=== PATIENT | male | born 1935 | race Caucasian/White ===

== ENCOUNTER 2021-10-06 03:13 | Inpatient (IN) ==
[2021-10-06] MEDS ORDERED: Acetaminophen 325 MG TABLET PO PRN (05:43)
[2021-10-06] MEDS ORDERED: Ondansetron 4 MG/2 ML VIAL IVP PRN (05:43)
[2021-10-06] MEDS ORDERED: Naloxone 0.4 MG/ML INJ IVP PRN (05:43)
[2021-10-06] MEDS ORDERED: Perflutren Lipid Microsphere 1.3 ML in 0.9 % Sodium Chloride 8.7 ML IVP PRN (05:46)
[2021-10-06 06:24] LABS: Hematocrit 34.2 % (37.5-50.1); Mean Corpuscular HGB Conc 32.2 g/dL (31.6-35.5); Mean Corpuscular Volume 96.3 fL (83.0-100.0); Platelet Count 124 K/mcL (140-400); Red Blood Count 3.55 M/mcL (4.19-5.50); Red Cell Distribution Width 13.2 % (11.5-14.5); White Blood Count 10.4 K/mcL (4.3-11.1)
[2021-10-06 06:29] LABS: INR 1.3; Prothrombin Time 14.4 Seconds (9.4-12.1)
[2021-10-06] MEDS: Ringers Solution, Lactated 1,000 ML IVC SCH (06:31)
[2021-10-06] MEDS ORDERED: Isovue-370 500 ML BOTTLE IVP ONE (06:31)
[2021-10-06 06:36] LABS: BUN/Creatinine Ratio 21 (6-26); Blood Urea Nitrogen 23 mg/dL (8-23); Calcium 8.5 mg/dL (8.6-10.3); Carbon Dioxide 24 mEq/L (23-29); Chloride 107 mEq/L (98-107); Glucose 112 mg/dL (70-105); Osmolality,Calculated 288 (280-300); Potassium 3.4 mEq/L (3.5-5.1); Sodium 137 mEq/L (136-145); eGFR For African Americans > 60 (> 60); eGFR For Non-African Americans > 60 (> 60)
[2021-10-06 06:37] LABS: Chol/HDL Ratio 2.7 (0-4.9)
[2021-10-06] MEDS: cefTRIAXone 1,000 MG in Water for inj. (sterile) 10 ML IVP SCH (10:15)
[2021-10-06] MEDS ORDERED: Furosemide 20 MG/2 ML VIAL IVP ONE (11:02)
[2021-10-06] MEDS: Vancomycin 1,500 MG/265 ML IV.SOLN IVPB SCH (12:04)
[2021-10-06] MEDS: Pantoprazole 40 MG VIAL IVP SCH (12:05)
[2021-10-06] MEDS: *HR* Heparin 5,000 UNIT/ML VIAL SQ SCH (18:36)
[2021-10-06] MEDS: Lactobacillus 1 EACH CAP.SPRINK PO SCH (21:24)
[2021-10-06] MEDS: Melatonin 3 MG TABLET PO PRN (21:38)
[2021-10-07] MEDS: *HR* Heparin 5,000 UNIT/ML VIAL SQ SCH ×2 (05:19→17:54)
[2021-10-07 05:25] LABS: Basophils % 0.4 %; Eosinophils % 0.2 %; Hematocrit 32.7 % (37.5-50.1); Hemoglobin 10.7 g/dL (12.9-16.9); Immature Granulocytes % 0.2 % (0-4); Lymphocytes # 0.5 K/mcL (0.6-4.6); Mean Corpuscular HGB Conc 32.7 g/dL (31.6-35.5); Mean Corpuscular Hemoglobin 31.3 pg (28.0-33.3); Mean Corpuscular Volume 95.6 fL (83.0-100.0); Mean Platelet Volume 10.1 fL (9.4-12.4); Monocytes # 0.5 K/mcL (0.0-1.3); Monocytes % 9.4 %; Platelet Count 110 K/mcL (140-400); Red Blood Count 3.42 M/mcL (4.19-5.50); Red Cell Distribution Width 13.3 % (11.5-14.5); Segmented Neutrophils % 80.8 %
[2021-10-07 06:17] LABS: Alanine Aminotransferase 30 Units/L (7-52); Albumin/Globulin Ratio 1.5 (1.1-2.2); Alkaline Phosphatase 40 Units/L (34-104); Aspartate Amino Transferase 64 Units/L (13-39); BUN/Creatinine Ratio 19 (6-26); Bilirubin,Total 0.3 mg/dL (0.3-1.0); Blood Urea Nitrogen 19 mg/dL (8-23); Calcium 8.4 mg/dL (8.6-10.3); Carbon Dioxide 26 mEq/L (23-29); Chloride 106 mEq/L (98-107); Glucose 115 mg/dL (70-105); Osmolality,Calculated 287 (280-300); Potassium 3.2 mEq/L (3.5-5.1); Sodium 137 mEq/L (136-145); eGFR For African Americans > 60 (> 60); eGFR For Non-African Americans > 60 (> 60)
[2021-10-07] MEDS: cefTRIAXone 1,000 MG in Water for inj. (sterile) 10 ML IVP SCH (08:45)
[2021-10-07] MEDS: Lactobacillus 1 EACH CAP.SPRINK PO SCH ×2 (08:45→21:01)
[2021-10-07] MEDS: Pantoprazole 40 MG VIAL IVP SCH (08:46)
[2021-10-07] MEDS: Vancomycin 1,500 MG/265 ML IV.SOLN IVPB SCH (12:09)
[2021-10-07 14:31] LABS: Acinetobacter baumannii by PCR Not Detected (Not Detect); Candida albicans by PCR Not Detected (Not Detect); Candida glabrata by PCR Not Detected (Not Detect); Candida krusei by PCR Not Detected (Not Detect); Candida parapsilosis by PCR Not Detected (Not Detect); Candida tropicalis by PCR Not Detected (Not Detect); Enterobacter cloacae Cmplx PCR Not Detected (Not Detect); Enterobacteriaceae by PCR Not Detected (Not Detect); Enterococcus by PCR DETECTED (Not Detect); Escherichia coli by PCR Not Detected (Not Detect); Klebsiella oxytoca by PCR Not Detected (Not Detect); Klebsiella pneumoniae by PCR Not Detected (Not Detect); Proteus by PCR Not Detected (Not Detect); Pseudomonas aeruginosa by PCR Not Detected (Not Detect); Serratia marcescens by PCR Not Detected (Not Detect); Staphylococcus aureus by PCR Not Detected (Not Detect); Staphylococcus by PCR Not Detected (Not Detect); Streptococcus agalactiae(B)PCR Not Detected (Not Detect); Streptococcus by PCR Not Detected (Not Detect); Streptococcus pneumoniae PCR Not Detected (Not Detect); Streptococcus pyogenes (A) PCR Not Detected (Not Detect); vanA/B Vancomycin-Resist Genes Not Detected (Not Detect)
[2021-10-07] MEDS: Ringers Solution, Lactated 1,000 ML IVC SCH (20:04)
[2021-10-07] MEDS: BuPROPion XL (24 HR) 150 MG TABLET PO SCH (21:00)
[2021-10-07] MEDS: traZODone 50 MG TABLET PO SCH (21:01)
[2021-10-07] MEDS: Melatonin 3 MG TABLET PO PRN (21:10)
[2021-10-08] MEDS: *HR* Heparin 5,000 UNIT/ML VIAL SQ SCH ×2 (05:37→16:50)
[2021-10-08 08:43] LABS: Adenovirus F 40/41 PCR Not detected (Not detect); Astrovirus PCR Not detected (Not detect); C.difficile Toxin A/B Gene PCR Not detected (Not detect); Campylobacter by PCR Not detected (Not detect); Cryptosporidium by PCR Not detected (Not detect); Cyclospora cayetanensis PCR Not detected (Not detect); E. coli O157 by PCR Not detected (Not detect); Entamoeba histolytica PCR Not detected (Not detect); Enteroaggregative E.coli(EAEC) Not detected (Not detect); Enteropathogenic E.coli(EPEC) Not detected (Not detect); Enterotoxigenic E.coli (ETEC) Not detected (Not detect); Giardia lamblia PCR Not detected (Not detect); Norovirus GI/GII PCR Not detected (Not detect); Plesiomonas shigelloides PCR Not detected (Not detect); Rotavirus A PCR Not detected (Not detect); Salmonella PCR Not detected (Not detect); Sapovirus PCR Not detected (Not detect); Shig/EnteroinvasiveE coli EIEC Not detected (Not detect); Shigalike tox-prod E coli STEC Not detected (Not detect); Vibrio PCR Not detected (Not detect); Vibrio cholerae PCR Not detected (Not detect); Yersinia enterocolitica PCR Not detected (Not detect)
[2021-10-08] MEDS: traZODone 50 MG TABLET PO SCH ×2 (08:54→21:21)
[2021-10-08] MEDS: Lactobacillus 1 EACH CAP.SPRINK PO SCH ×2 (08:54→21:15)
[2021-10-08] MEDS: BuPROPion XL (24 HR) 150 MG TABLET PO SCH ×2 (08:54→21:16)
[2021-10-08] MEDS: *HR* HYDROcodone/Acet 5/325 mg TABLET PO PRN ×2 (08:54→16:49)
[2021-10-08] MEDS: Aspirin Enteric Coated 81 MG Tablet PO SCH (08:54)
[2021-10-08] MEDS: cefTRIAXone 1,000 MG in Water for inj. (sterile) 10 ML IVP SCH (08:55)
[2021-10-08] MEDS: Nystatin SUSP 5 ML UD.LIQ PO SCH ×4 (08:55→21:15)
[2021-10-08] MEDS: Pantoprazole 40 MG VIAL IVP SCH (08:55)
[2021-10-08 11:12] LABS: Basophils % 0.5 %; Eosinophils % 0.8 %; Immature Granulocytes % 0.3 % (0-4); Lymphocytes # 0.6 K/mcL (0.6-4.6); Lymphocytes % 15.2 %; Mean Corpuscular HGB Conc 32.4 g/dL (31.6-35.5); Mean Corpuscular Hemoglobin 31.4 pg (28.0-33.3); Mean Corpuscular Volume 96.9 fL (83.0-100.0); Mean Platelet Volume 10.7 fL (9.4-12.4); Monocytes # 0.4 K/mcL (0.0-1.3); Monocytes % 10.5 %; Neutrophils # 2.8 K/mcL (1.6-8.9); Platelet Count 139 K/mcL (140-400); Red Blood Count 3.92 M/mcL (4.19-5.50); Segmented Neutrophils % 72.7 %; White Blood Count 3.8 K/mcL (4.3-11.1)
[2021-10-08 11:16] LABS: Hemoglobin 12.3 g/dL (12.9-16.9)
[2021-10-08 11:33] LABS: BUN/Creatinine Ratio 12 (6-26); Blood Urea Nitrogen 13 mg/dL (8-23); Calcium 8.7 mg/dL (8.6-10.3); Carbon Dioxide 25 mEq/L (23-29); Chloride 103 mEq/L (98-107); Glucose 144 mg/dL (70-105); Osmolality,Calculated 287 (280-300); Potassium 3.2 mEq/L (3.5-5.1); Sodium 137 mEq/L (136-145); eGFR For African Americans > 60 (> 60); eGFR For Non-African Americans > 60 (> 60)
[2021-10-09 05:50] LABS: Basophils % 0.8 %; Eosinophils # 0.1 K/mcL (0.0-0.6); Eosinophils % 3.3 %; Hematocrit 32.4 % (37.5-50.1); Hemoglobin 10.8 g/dL (12.9-16.9); Immature Granulocytes % 0.3 % (0-4); Lymphocytes # 0.9 K/mcL (0.6-4.6); Lymphocytes % 25.8 %; Mean Corpuscular HGB Conc 33.3 g/dL (31.6-35.5); Mean Corpuscular Hemoglobin 31.3 pg (28.0-33.3); Mean Corpuscular Volume 93.9 fL (83.0-100.0); Mean Platelet Volume 10.5 fL (9.4-12.4); Monocytes # 0.5 K/mcL (0.0-1.3); Monocytes % 12.8 %; Neutrophils # 2.1 K/mcL (1.6-8.9); Platelet Count 123 K/mcL (140-400); Red Blood Count 3.45 M/mcL (4.19-5.50); Red Cell Distribution Width 12.9 % (11.5-14.5); White Blood Count 3.6 K/mcL (4.3-11.1)
[2021-10-09 06:13] LABS: BUN/Creatinine Ratio 14 (6-26); Blood Urea Nitrogen 14 mg/dL (8-23); Calcium 8.4 mg/dL (8.6-10.3); Carbon Dioxide 27 mEq/L (23-29); Chloride 106 mEq/L (98-107); Glucose 100 mg/dL (70-105); Osmolality,Calculated 289 (280-300); Sodium 139 mEq/L (136-145); eGFR For African Americans > 60 (> 60); eGFR For Non-African Americans > 60 (> 60)
[2021-10-09] MEDS: *HR* Heparin 5,000 UNIT/ML VIAL SQ SCH ×2 (07:06→17:28)
[2021-10-09] MEDS: *HR* HYDROcodone/Acet 5/325 mg TABLET PO PRN ×2 (08:30→14:51)
[2021-10-09] MEDS: cefTRIAXone 1,000 MG in Water for inj. (sterile) 10 ML IVP SCH (08:30)
[2021-10-09] MEDS: BuPROPion XL (24 HR) 150 MG TABLET PO SCH ×4 (08:33→20:13)
[2021-10-09] MEDS: Lactobacillus 1 EACH CAP.SPRINK PO SCH ×4 (08:33→20:14)
[2021-10-09] MEDS: Aspirin Enteric Coated 81 MG Tablet PO SCH ×3 (08:33→12:33)
[2021-10-09] MEDS: traZODone 50 MG TABLET PO SCH ×4 (08:33→20:13)
[2021-10-09] MEDS: Nystatin SUSP 5 ML UD.LIQ PO SCH ×5 (08:33→20:14)
[2021-10-09] MEDS ORDERED: Lidocaine Viscous Oral Soln 15 ML SOLUTION MM PRN (10:11)
[2021-10-09] MEDS ORDERED: 0.9 % Sodium Chloride 500 ML IVC ONE (10:12)
[2021-10-09] MEDS ORDERED: *HR* Midazolam HCl 2 MG/2 ML VIAL IVP PRN (10:36)
[2021-10-09] MEDS ORDERED: *HR* Midazolam HCl 5 MG/5 ML VIAL IVP ONE ×2 (10:47→10:48)
[2021-10-09] MEDS: *HR* FentaNYL (PF) 100 MCG/2 ML VIAL IVP PRN ×2 (11:05→11:10)
[2021-10-09] MEDS: Melatonin 3 MG TABLET PO PRN (20:22)
[2021-10-10 03:41] LABS: Basophils % 0.6 %; Eosinophils # 0.2 K/mcL (0.0-0.6); Eosinophils % 3.3 %; Hematocrit 31.8 % (37.5-50.1); Hemoglobin 10.8 g/dL (12.9-16.9); Immature Granulocytes % 0.4 % (0-4); Lymphocytes # 0.9 K/mcL (0.6-4.6); Lymphocytes % 17.7 %; Mean Corpuscular Hemoglobin 32.2 pg (28.0-33.3); Mean Corpuscular Volume 94.9 fL (83.0-100.0); Mean Platelet Volume 9.9 fL (9.4-12.4); Monocytes # 0.6 K/mcL (0.0-1.3); Monocytes % 12.6 %; Neutrophils # 3.2 K/mcL (1.6-8.9); Platelet Count 127 K/mcL (140-400); Red Blood Count 3.35 M/mcL (4.19-5.50); Segmented Neutrophils % 65.4 %; White Blood Count 4.9 K/mcL (4.3-11.1)
[2021-10-10 03:43] LABS: BUN/Creatinine Ratio 20 (6-26); Blood Urea Nitrogen 20 mg/dL (8-23); Calcium 8.2 mg/dL (8.6-10.3); Carbon Dioxide 29 mEq/L (23-29); Chloride 105 mEq/L (98-107); Glucose 103 mg/dL (70-105); Osmolality,Calculated 289 (280-300); Potassium 3.4 mEq/L (3.5-5.1); Sodium 138 mEq/L (136-145); eGFR For African Americans > 60 (> 60); eGFR For Non-African Americans > 60 (> 60)
[2021-10-10] MEDS: *HR* Heparin 5,000 UNIT/ML VIAL SQ SCH ×2 (05:37→17:12)
[2021-10-10] MEDS: cefTRIAXone 1,000 MG in Water for inj. (sterile) 10 ML IVP SCH (08:33)
[2021-10-10] MEDS: Aspirin Enteric Coated 81 MG Tablet PO SCH (08:34)
[2021-10-10] MEDS: traZODone 50 MG TABLET PO SCH ×2 (08:34→20:17)
[2021-10-10] MEDS: BuPROPion XL (24 HR) 150 MG TABLET PO SCH ×2 (08:34→20:17)
[2021-10-10] MEDS: Nystatin SUSP 5 ML UD.LIQ PO SCH ×4 (08:34→20:18)
[2021-10-10] MEDS: Lactobacillus 1 EACH CAP.SPRINK PO SCH ×2 (08:34→20:16)
[2021-10-10] MEDS ORDERED: DAPTOmycin 700 MG in 0.9 % Sodium Chloride 100 ML IVPB SCH (13:00)
[2021-10-11 05:17] LABS: Basophils % 0.6 %; Eosinophils # 0.3 K/mcL (0.0-0.6); Eosinophils % 5.9 %; Hematocrit 32.5 % (37.5-50.1); Hemoglobin 10.7 g/dL (12.9-16.9); Immature Granulocytes % 0.4 % (0-4); Lymphocytes # 0.9 K/mcL (0.6-4.6); Lymphocytes % 19.1 %; Mean Corpuscular HGB Conc 32.9 g/dL (31.6-35.5); Mean Corpuscular Hemoglobin 31.4 pg (28.0-33.3); Mean Corpuscular Volume 95.3 fL (83.0-100.0); Mean Platelet Volume 10.1 fL (9.4-12.4); Monocytes # 0.7 K/mcL (0.0-1.3); Monocytes % 13.9 %; Neutrophils # 2.9 K/mcL (1.6-8.9); Platelet Count 131 K/mcL (140-400); Red Blood Count 3.41 M/mcL (4.19-5.50); Red Cell Distribution Width 12.9 % (11.5-14.5); Segmented Neutrophils % 60.1 %; White Blood Count 4.8 K/mcL (4.3-11.1)
[2021-10-11] MEDS: *HR* Heparin 5,000 UNIT/ML VIAL SQ SCH ×2 (05:45→18:24)
[2021-10-11 06:20] LABS: BUN/Creatinine Ratio 27 (6-26); Blood Urea Nitrogen 27 mg/dL (8-23); Calcium 8.4 mg/dL (8.6-10.3); Carbon Dioxide 29 mEq/L (23-29); Chloride 105 mEq/L (98-107); Glucose 102 mg/dL (70-105); Osmolality,Calculated 293 (280-300); Potassium 3.5 mEq/L (3.5-5.1); Sodium 139 mEq/L (136-145); eGFR For African Americans > 60 (> 60); eGFR For Non-African Americans > 60 (> 60)
[2021-10-11] MEDS: BuPROPion XL (24 HR) 150 MG TABLET PO SCH ×2 (09:24→20:01)
[2021-10-11] MEDS: Lactobacillus 1 EACH CAP.SPRINK PO SCH ×2 (09:24→20:01)
[2021-10-11] MEDS: traZODone 50 MG TABLET PO SCH ×2 (09:24→20:01)
[2021-10-11] MEDS: Aspirin Enteric Coated 81 MG Tablet PO SCH (09:25)
[2021-10-11] MEDS: Nystatin SUSP 5 ML UD.LIQ PO SCH ×4 (09:25→20:02)
[2021-10-11] MEDS: cefTRIAXone 1,000 MG in Water for inj. (sterile) 10 ML IVP SCH (09:25)
[2021-10-12] MEDS: *HR* Heparin 5,000 UNIT/ML VIAL SQ SCH ×2 (05:22→18:08)
[2021-10-12] MEDS: Lactobacillus 1 EACH CAP.SPRINK PO SCH ×2 (10:10→21:42)
[2021-10-12] MEDS: Nystatin SUSP 5 ML UD.LIQ PO SCH ×4 (10:10→21:44)
[2021-10-12] MEDS: traZODone 50 MG TABLET PO SCH ×2 (10:10→21:42)
[2021-10-12] MEDS: Aspirin Enteric Coated 81 MG Tablet PO SCH (10:10)
[2021-10-12] MEDS: BuPROPion XL (24 HR) 150 MG TABLET PO SCH ×2 (10:10→21:41)
[2021-10-12] MEDS: DAPTOmycin 750 MG in 0.9 % Sodium Chloride 100 ML IVPB SCH (14:01)
[2021-10-13] MEDS: *HR* Heparin 5,000 UNIT/ML VIAL SQ SCH (05:33)
[2021-10-13 08:26] LABS: BUN/Creatinine Ratio 29 (6-26); Blood Urea Nitrogen 28 mg/dL (8-23); Calcium 8.3 mg/dL (8.6-10.3); Carbon Dioxide 31 mEq/L (23-29); Chloride 106 mEq/L (98-107); Creatine Kinase 75 Units/L (30-223); Glucose 97 mg/dL (70-105); Osmolality,Calculated 281 (280-300); Potassium 3.4 mEq/L (3.5-5.1); Sodium 133 mEq/L (136-145); eGFR For African Americans > 60 (> 60); eGFR For Non-African Americans > 60 (> 60)
[2021-10-13] MEDS: Aspirin Enteric Coated 81 MG Tablet PO SCH (09:20)
[2021-10-13] MEDS: BuPROPion XL (24 HR) 150 MG TABLET PO SCH (09:20)
[2021-10-13] MEDS: traZODone 50 MG TABLET PO SCH (09:20)
[2021-10-13] MEDS: Lactobacillus 1 EACH CAP.SPRINK PO SCH (09:20)
[2021-10-13] MEDS: Nystatin SUSP 5 ML UD.LIQ PO SCH ×2 (09:20→12:32)
[2021-10-13 10:46] VITALS: BP 124/49; PULSE 85; TEMP 98.1; O2SAT 96
[2021-10-13] MEDS: DAPTOmycin 750 MG in 0.9 % Sodium Chloride 100 ML IVPB SCH (12:32)
== END 2021-10-13 17:15 | disposition home health service (06) | DRG 871 ==
LOC: 3ANU → SUATTDRO 05:06
PROVIDERS: ADMIT Internal Medicine; ATTEND Internal Medicine

== ENCOUNTER 2022-02-13 10:15 | Observation (INO) ==
[2022-02-13 11:10] LABS: Eosinophils # 0.2 K/mcL (0.0-0.6); Eosinophils % 4.2 %; Hematocrit 34.5 % (37.5-50.1); Hemoglobin 11.6 g/dL (12.9-16.9); Immature Granulocytes % 0.2 % (0-4); Lymphocytes # 0.6 K/mcL (0.6-4.6); Lymphocytes % 15.8 %; Mean Corpuscular HGB Conc 33.6 g/dL (31.6-35.5); Mean Corpuscular Hemoglobin 32.5 pg (28.0-33.3); Mean Corpuscular Volume 96.6 fL (83.0-100.0); Mean Platelet Volume 9.9 fL (9.4-12.4); Monocytes # 0.5 K/mcL (0.0-1.3); Monocytes % 13.1 %; Neutrophils # 2.7 K/mcL (1.6-8.9); Platelet Count 140 K/mcL (140-400); Red Blood Count 3.57 M/mcL (4.19-5.50); Red Cell Distribution Width 12.8 % (11.5-14.5); Segmented Neutrophils % 65.7 %
[2022-02-13 11:18] LABS: INR 1.2; Prothrombin Time 13.1 Seconds (9.4-12.1)
[2022-02-13 11:20] LABS: Activated Partial Thrombo Time 26.7 Seconds (26.0-36.0)
[2022-02-13 11:40] LABS: Alanine Aminotransferase 16 Units/L (7-52); Albumin 3.8 g/dL (3.5-5.7); Alkaline Phosphatase 57 Units/L (34-104); Aspartate Amino Transferase 14 Units/L (13-39); BUN/Creatinine Ratio 22 (6-26); Bilirubin,Direct 0.1 mg/dL (0.0-0.2); Bilirubin,Indirect 0.4 mg/dL (0.0-1.0); Bilirubin,Total 0.5 mg/dL (0.3-1.0); Blood Urea Nitrogen 26 mg/dL (8-23); Calcium 9.1 mg/dL (8.6-10.3); Carbon Dioxide 30 mEq/L (23-29); Chloride 103 mEq/L (98-107); Globulin 1.9 g/dL (2.4-3.5); Glucose 106 mg/dL (70-105); Osmolality,Calculated 287 (280-300); Sodium 136 mEq/L (136-145); Total Protein 5.7 g/dL (6.4-8.9); Troponin I < 0.03 ng/mL (< 0.04); eGFR For African Americans > 60 (> 60); eGFR For Non-African Americans 58 (> 60)
[2022-02-13] MEDS ORDERED: Ondansetron ODT 4 MG TAB.RAPDIS SL PRN (18:00)
[2022-02-13] MEDS ORDERED: MOM Conc 10 ML UD.LIQ PO PRN (18:00)
[2022-02-13] MEDS ORDERED: Naloxone 0.4 MG/ML INJ IVP PRN (18:00)
[2022-02-13] MEDS ORDERED: Acetaminophen 325 MG TABLET PO PRN (18:00)
[2022-02-13] MEDS ORDERED: Melatonin 3 MG TABLET PO PRN (18:00)
[2022-02-13] MEDS ORDERED: Nitroglycerin 0.4 MG TAB.SUBL SL PRN (18:04)
[2022-02-13] MEDS: BuPROPion SR (12 HR) 150 MG TABLET PO SCH (20:47)
[2022-02-13] MEDS ORDERED: traZODone 50 MG TABLET PO SCH (21:00)
[2022-02-14 05:14] LABS: Basophils % 0.7 %; Eosinophils # 0.3 K/mcL (0.0-0.6); Eosinophils % 4.8 %; Hemoglobin 12.7 g/dL (12.9-16.9); Immature Granulocytes % 0.2 % (0-4); Lymphocytes # 0.9 K/mcL (0.6-4.6); Mean Corpuscular HGB Conc 34.3 g/dL (31.6-35.5); Mean Corpuscular Volume 96.1 fL (83.0-100.0); Mean Platelet Volume 10.1 fL (9.4-12.4); Monocytes # 0.6 K/mcL (0.0-1.3); Monocytes % 11.7 %; Neutrophils # 3.6 K/mcL (1.6-8.9); Platelet Count 155 K/mcL (140-400); Red Blood Count 3.85 M/mcL (4.19-5.50); Red Cell Distribution Width 12.6 % (11.5-14.5); Segmented Neutrophils % 66.6 %; White Blood Count 5.4 K/mcL (4.3-11.1)
[2022-02-14 05:36] LABS: BUN/Creatinine Ratio 17 (6-26); Blood Urea Nitrogen 18 mg/dL (8-23); Calcium 9.2 mg/dL (8.6-10.3); Carbon Dioxide 28 mEq/L (23-29); Chloride 103 mEq/L (98-107); Chol/HDL Ratio 2.3 (0-4.9); Cholesterol 113 mg/dL (< 200); Glucose 99 mg/dL (70-105); HDL Cholesterol 50 mg/dL (40-59); LDL Cholesterol,Calculated 50 mg/dL (< 100); Osmolality,Calculated 288 (280-300); Potassium 3.7 mEq/L (3.5-5.1); Sodium 138 mEq/L (136-145); Triglycerides 63 mg/dL (< 150); eGFR For African Americans > 60 (> 60); eGFR For Non-African Americans > 60 (> 60)
[2022-02-14] MEDS ORDERED: Regadenoson 0.4 MG/5 ML SYRINGE IVP ONE (06:48)
[2022-02-14 07:44] VITALS: BP 150/84; PULSE 64; TEMP 98; O2SAT 94
[2022-02-14] MEDS ORDERED: Aspirin Enteric Coated 81 MG Tablet PO SCH (09:00)
[2022-02-14] MEDS: BuPROPion SR (12 HR) 150 MG TABLET PO SCH (11:02)
== END 2022-02-14 13:31 | disposition home or self-care (01) ==
LOC: EMEROOARM 10:15 → 3BNU 10:15 → SUATTDRO 18:29 → 3BNU 20:21
PROVIDERS: ADMIT Internal Medicine; ATTEND Family Medicine

== ENCOUNTER 2022-03-29 09:45 | Observation (INO) ==
[2022-03-29] MEDS ORDERED: Naloxone 0.4 MG/ML INJ IVP PRN (13:29)
[2022-03-29] MEDS ORDERED: Ondansetron ODT 4 MG TAB.RAPDIS SL PRN (13:45)
[2022-03-29] MEDS ORDERED: Perflutren Lipid Microsphere 1.3 ML in 0.9 % Sodium Chloride 8.7 ML IVP PRN (13:45)
[2022-03-29] MEDS ORDERED: Acetaminophen 325 MG TABLET PO PRN (13:45)
[2022-03-29] MEDS ORDERED: Nitroglycerin 0.4 MG TAB.SUBL SL PRN (14:57)
[2022-03-29] MEDS ORDERED: Morphine Sulfate 2 MG/ML SYRINGE IVP PRN (14:59)
[2022-03-29] MEDS: Isosorbide MONOnitrate (24 HR) 30 MG TAB.ER.24H PO SCH (16:29)
[2022-03-29] MEDS: Pantoprazole 40 MG VIAL IVP SCH (16:29)
[2022-03-29] MEDS: *HR* Heparin 5,000 UNIT/ML VIAL SQ SCH (16:30)
[2022-03-29] MEDS: Melatonin 3 MG TABLET PO SCH (21:41)
[2022-03-29] MEDS: traZODone 50 MG TABLET PO SCH (21:41)
[2022-03-30] MEDS: *HR* Heparin 5,000 UNIT/ML VIAL SQ SCH ×2 (05:37→21:34)
[2022-03-30 05:57] LABS: Basophils % 0.5 %; Eosinophils # 0.3 K/mcL (0.0-0.6); Eosinophils % 4.2 %; Hematocrit 30.9 % (37.5-50.1); Hemoglobin 10.4 g/dL (12.9-16.9); Immature Granulocytes % 0.2 % (0-4); Lymphocytes # 0.9 K/mcL (0.6-4.6); Lymphocytes % 14.3 %; Mean Corpuscular HGB Conc 33.7 g/dL (31.6-35.5); Mean Corpuscular Volume 98.1 fL (83.0-100.0); Mean Platelet Volume 10.2 fL (9.4-12.4); Monocytes # 0.8 K/mcL (0.0-1.3); Monocytes % 12.7 %; Neutrophils # 4.3 K/mcL (1.6-8.9); Platelet Count 133 K/mcL (140-400); Red Blood Count 3.15 M/mcL (4.19-5.50); Red Cell Distribution Width 12.8 % (11.5-14.5); Segmented Neutrophils % 68.1 %; White Blood Count 6.2 K/mcL (4.3-11.1)
[2022-03-30 06:21] LABS: Alanine Aminotransferase 12 Units/L (7-52); Albumin 3.2 g/dL (3.5-5.7); Albumin/Globulin Ratio 1.6 (1.1-2.2); Alkaline Phosphatase 54 Units/L (34-104); Aspartate Amino Transferase 12 Units/L (13-39); BUN/Creatinine Ratio 15 (6-26); Bilirubin,Total 0.8 mg/dL (0.3-1.0); Blood Urea Nitrogen 17 mg/dL (8-23); Calcium 8.6 mg/dL (8.6-10.3); Carbon Dioxide 30 mEq/L (23-29); Chloride 103 mEq/L (98-107); Chol/HDL Ratio 2.1 (0-4.9); Cholesterol 95 mg/dL (< 200); Glucose 96 mg/dL (70-105); HDL Cholesterol 45 mg/dL (40-59); LDL Cholesterol,Calculated 39 mg/dL (< 100); Osmolality,Calculated 285 (280-300); Potassium 3.4 mEq/L (3.5-5.1); Sodium 137 mEq/L (136-145); Total Protein 5.2 g/dL (6.4-8.9); Triglycerides 55 mg/dL (< 150); eGFR For African Americans > 60 (> 60); eGFR For Non-African Americans > 60 (> 60)
[2022-03-30] MEDS: Aspirin Enteric Coated 81 MG Tablet PO SCH (09:03)
[2022-03-30] MEDS: Simethicone 80 MG TAB.CHEW PO SCH (09:03)
[2022-03-30] MEDS: Isosorbide MONOnitrate (24 HR) 30 MG TAB.ER.24H PO SCH (09:03)
[2022-03-30] MEDS: BuPROPion SR (12 HR) 150 MG TABLET PO SCH ×2 (09:04→21:53)
[2022-03-30] MEDS: Pantoprazole 40 MG VIAL IVP SCH (09:04)
[2022-03-30] MEDS: amLODIPine 5 MG TABLET PO SCH (09:05)
[2022-03-30] MEDS ORDERED: Isosorbide MONOnitrate (24 HR) 30 MG TAB.ER.24H PO ONE (12:12)
[2022-03-30] MEDS ORDERED: Donnatal Liq 10 ML UDC PO ONE (12:24)
[2022-03-30] MEDS ORDERED: Lidocaine Viscous Oral Soln 15 ML SOLUTION MM ONE (12:25)
[2022-03-30] MEDS ORDERED: Mag Hydrox/Al Hydrox/Simeth 30 ML UDC PO ONE (12:25)
[2022-03-30] MEDS ORDERED: GI Cocktail 40 ML EACH PO ONE (13:10)
[2022-03-30] MEDS ORDERED: Furosemide 20 MG TABLET PO PRN (13:13)
[2022-03-30] MEDS: Melatonin 3 MG TABLET PO SCH (21:51)
[2022-03-30] MEDS: traZODone 50 MG TABLET PO SCH (21:51)
[2022-03-30] MEDS ORDERED: traZODone 50 MG TABLET PO ONE (22:12)
[2022-03-31] MEDS: *HR* Heparin 5,000 UNIT/ML VIAL SQ SCH (06:12)
[2022-03-31 07:23] LABS: Basophils % 0.3 %; Eosinophils # 0.2 K/mcL (0.0-0.6); Eosinophils % 3.8 %; Hematocrit 31.8 % (37.5-50.1); Hemoglobin 10.4 g/dL (12.9-16.9); Immature Granulocytes % 0.2 % (0-4); Lymphocytes # 0.9 K/mcL (0.6-4.6); Lymphocytes % 15.7 %; Mean Corpuscular HGB Conc 32.7 g/dL (31.6-35.5); Mean Corpuscular Hemoglobin 31.7 pg (28.0-33.3); Mean Platelet Volume 10.3 fL (9.4-12.4); Monocytes # 0.7 K/mcL (0.0-1.3); Monocytes % 11.8 %; Neutrophils # 3.9 K/mcL (1.6-8.9); Platelet Count 148 K/mcL (140-400); Red Blood Count 3.28 M/mcL (4.19-5.50); Red Cell Distribution Width 12.6 % (11.5-14.5); Segmented Neutrophils % 68.2 %; White Blood Count 5.8 K/mcL (4.3-11.1)
[2022-03-31] MEDS: Aspirin Enteric Coated 81 MG Tablet PO SCH (07:46)
[2022-03-31] MEDS: Simethicone 80 MG TAB.CHEW PO SCH (07:46)
[2022-03-31] MEDS: BuPROPion SR (12 HR) 150 MG TABLET PO SCH (07:46)
[2022-03-31] MEDS: amLODIPine 5 MG TABLET PO SCH (07:47)
[2022-03-31 07:53] LABS: BUN/Creatinine Ratio 15 (6-26); Blood Urea Nitrogen 19 mg/dL (8-23); Calcium 8.6 mg/dL (8.6-10.3); Carbon Dioxide 28 mEq/L (23-29); Chloride 103 mEq/L (98-107); Glucose 105 mg/dL (70-105); Osmolality,Calculated 287 (280-300); Potassium 3.4 mEq/L (3.5-5.1); Sodium 137 mEq/L (136-145); eGFR For African Americans > 60 (> 60); eGFR For Non-African Americans 55 (> 60)
[2022-03-31] MEDS: Pantoprazole 40 MG VIAL IVP SCH (07:55)
[2022-03-31] MEDS ORDERED: Furosemide 20 MG TABLET PO SCH (09:00)
[2022-03-31] MEDS ORDERED: Isosorbide MONOnitrate (24 HR) 30 MG TAB.ER.24H PO SCH (09:00)
[2022-03-31] MEDS ORDERED: Isosorbide MONOnitrate (24 HR) 60 MG TAB.ER.24H PO SCH (09:00)
[2022-03-31 15:26] VITALS: BP 102/52; PULSE 62; TEMP 98.1; O2SAT 96
== END 2022-03-31 17:18 | disposition home or self-care (01) ==
LOC: 3BNU → SUATTDRO 12:38
PROVIDERS: ADMIT Student in an Organized Health Care Education/Training Program; ATTEND Nurse Practitioner